=== PATIENT | female | born 1990 ===

== ENCOUNTER 2021-09-04 08:05 | Inpatient (IN) | payer OTHER ==
[~2021-09-04] VITALS: Ht 165.1 cm; Wt 3.2 kg
[2021-09-04] MEDS ORDERED: PRENATAL + DHA1 EAC1 PO (08:14)
== END 2021-09-08 12:37 | disposition home or self-care (01) | DRG 788 ==
LOC: LDR 08:05 → SURG-SUITE 08:05 → O/R 16:12 → LDR 16:13 → SURG-SUITE 09-05 13:45
PROVIDERS: ADMIT Obstetrics & Gynecology; ATTEND Obstetrics & Gynecology
PROC: 3E0P7VZ Introduction of Hormone into Female Reproductive, Via Natural or Artificial Opening (ICD-10-PCS; 2021-09-04)
PROC: 4A1HXFZ Monitoring of Products of Conception, Cardiac Rhythm, External Approach (ICD-10-PCS; 2021-09-04)
PROC: 10D00Z1 Extraction of Products of Conception, Low, Open Approach (ICD-10-PCS; principal; 2021-09-05 17:00)
DX: O62.1 Secondary uterine inertia (principal); O64.0XX0 Obstructed labor due to incomplete rotation of fetal head, not applicable or unspecified; O48.0 Post-term pregnancy; Z37.0 Single live birth; Z3A.40 40 weeks gestation of pregnancy